=== PATIENT | female | born 1950 ===

== ENCOUNTER 2022-07-15 12:29 | Inpatient (IN) ==
[2022-07-15] MEDS ORDERED: NS 0.9% 1000 ml BAG 1,000 ML IV ONE ×2 (12:51)
[2022-07-15] MEDS ORDERED: cefTRIAXone 2 GM ADDV.VIAL 2 GM in NS 0.9% 100 ml BAG 100 ML IV ONE (12:53)
[2022-07-15 13:18] LABS: PCO2 Arterial 23 mmHg (35-45); PO2 Arterial 83 mmHg (80-100)
[2022-07-15 13:35] LABS: Hematocrit 40 % (35-47); Hemoglobin 12.7 g/dL (12.0-16.0); Mean Corpuscular HGB Conc 32 g/dL (31-36); Mean Corpuscular Hemoglobin 27 pg (27-31); Mean Corpuscular Volume 84 fL (80-97); Mean Platelet Volume 10.1 fL (7.4-10.4); Platelet Count 110 10^3/uL (150-450); Red Blood Count 4.75 10^6 /uL (3.70-4.87); Red Cell Distribution Width 14 % (10-15); White Blood Count 13.3 10^3/uL (3.5-10.8)
[2022-07-15 13:45] LABS: Activated Partial Thrombo Time 34.9 seconds (26.0-38.0); INR 1.3 (0.89-1.11)
[2022-07-15 14:00] LABS: High Sens Troponin Baseline 373 pg/mL (<15)
[2022-07-15 14:16] LABS: Albumin 3.2 g/dL (3.2-5.2); CO2 Carbon Dioxide 16 mmol/L (22-32); Calcium 7.7 mg/dL (8.6-10.3); Chloride 106 mmol/L (101-111); Sodium 140 mmol/L (135-145)
[2022-07-15 14:17] LABS: Urine Appearance Turbid; Urine Bilirubin 3+ (Large) (Negative); Urine Blood 3+ (Large) (Negative); Urine Color Red; Urine Glucose Trace (100mg/dL) (Negative); Urine Ketones 1+ (15mg/dL) (Negative); Urine Protein 3+ (>=300 mg/dL) (Negative); Urine Specific Gravity 1.015 (1.005-1.030); Urine pH 5.5 (5.0-9.0)
[2022-07-15 14:18] LABS: Anion Gap 18 mmol/L (2-11)
[2022-07-15 14:18] LABS: Urine Nitrite Positive (Negative)
[2022-07-15 14:22] LABS: ALT 17 U/L (7-52); Albumin/Globulin Ratio 1.3 (1-3); Alkaline Phosphatase 216 U/L (35-149); Blood Urea Nitrogen 35 mg/dL (6-24); Globulin 2.4 g/dL (2-4); Glucose 127 mg/dL (70-100); Total Protein 5.6 g/dL (6.4-8.9); eGFR CKD-EPI 12.1 (>60)
[2022-07-15 14:24] LABS: ABS Lymphocytes 0.3 10^3/ul (1.0-4.8); ABS Monocytes 0.1 10^3/ul (0-0.8); ABS Neutrophils 12.9 10^3/ul (1.5-7.7); Lymphocyte % 2.1 %
[2022-07-15 14:26] LABS: Urine Bacteria Absent (Absent); Urine Red Blood Cell 3+(>10/hpf) (Absent); Urine White Blood Cell 3+(>20/hpf) (Absent); Urine Yeast Present (Absent)
[2022-07-15] MEDS ORDERED: Enoxaparin 80 MG/0.8 ML SYR SUBCUT ONE (14:51)
[2022-07-15 15:18] LABS: Potassium Redraw 3.8 mmol/L (3.5-5.0)
[2022-07-15] MEDS ORDERED: Adenosine 3 MG/ML 2 ml VIAL (6 mg) ONE (15:18)
[2022-07-15 15:21] LABS: High Sensitivity Troponin 1 Hr 352 pg/mL (<15)
[2022-07-15] MEDS ORDERED: Magnesium Sulfate 2 gm BAG 2 GM/50 ML BAG IVPB ONE ×2 (15:31→17:01)
[2022-07-15] MEDS ORDERED: Adenosine 3 MG/ML 2 ml VIAL (6 mg) IV PUSH ONE ×3 (15:31→18:02)
[2022-07-15] MEDS ORDERED: Magnesium Sulfate 2 gm BAG 2 GM/50 ML BAG ONE (15:31)
[2022-07-15 15:48] LABS: Magnesium 1.5 mg/dL (1.9-2.7)
[2022-07-15] MEDS ORDERED: KCL 20 MEQ/100 ML IVPREMIX 20 MEQ/100 ML BAG IV ONE (17:02)
[2022-07-15] MEDS ORDERED: CALCIUM GLUCONATE 1GM/50ML NS 1 GM/50 ML BAG IV ONE (17:02)
[2022-07-15] MEDS ORDERED: Amiodarone 360 MG IVPREMIX 360 MG/200 ML BAG IV SCH ×2 (17:05→18:25)
[2022-07-15] MEDS ORDERED: Amiodarone 360 MG IVPREMIX 360 MG/200 ML BAG IV ONE (17:06)
[2022-07-15] MEDS ORDERED: Amiodarone 150 mg IVPREMIX 150 MG/100 ML BAG IV ONE ×2 (17:06→18:11)
[2022-07-15] MEDS ORDERED: Succinylcholine 200 mg VIAL 20 mg/ml 10 ml VIAL (200 mg) ONE (17:24)
[2022-07-15] MEDS ORDERED: Rocuronium 50 mg VIAL 10 mg/ml 5 ml VIAL (50 mg) ONE (17:24)
[2022-07-15] MEDS ORDERED: Norepinephrine 16MCG/ML BAG NS 4,000 MCG/250 ML BAG IV ONE (17:25)
[2022-07-15] MEDS ORDERED: Propofol 10 mg/ml 100 ML BTL 100 ML ONE ×2 (17:40→18:01)
[2022-07-15] MEDS ORDERED: Amiodarone IV 150 mg/3 ml VIAL SLOW PUSH ONE (18:01)
[2022-07-15] MEDS ORDERED: Acetaminophen IV 1 GM/100ML 1,000 MG/100 ML BAG IV PRN (18:05)
[2022-07-15] MEDS ORDERED: Piperacillin/Tazobac ADVAN 3.375 GM in NS 0.9% 100 ml BAG 100 ML IV ONE (18:05)
[2022-07-15] MEDS ORDERED: .Amiodarone 24HR ONLY IV Protocol Order Note IV ONE (18:11)
[2022-07-15] MEDS ORDERED: Dextrose 50% Syringe 50 ml 25 GM/50 ML SYRINGE IV PUSH PRN (18:16)
[2022-07-15] MEDS ORDERED: Midazolam 2 mg/2 ml VIAL 1 mg/ml 2 ml VIAL (2 mg) ONE (18:24)
[2022-07-15 18:33] LABS: Creatine Kinase 507 U/L (10-223)
[2022-07-15] MEDS: Midazolam 2 mg/2 ml VIAL 1 mg/ml 2 ml VIAL (2 mg) IV SLOW PU PRN (18:36)
[2022-07-15] MEDS: Norepinephrine 16MCG/ML BAG NS 4,000 MCG/250 ML BAG IV SCH ×2 (18:45→22:45)
[2022-07-15] MEDS ORDERED: Zosyn per Pharmacy NOTE FOLLOW UP SCH (19:00)
[2022-07-15] MEDS ORDERED: Lactated Ringers 1000 ml BAG 1,000 ML IV SCH (19:00)
[2022-07-15] MEDS ORDERED: Dexamethasone IV 4 MG/ML VIAL 1 ml VIAL IV SLOW PU SCH (19:00)
[2022-07-15] MEDS ORDERED: Etomidate 40 mg/20 ml (2 MG/ML) 20 ml VIAL (40 mg) ONE (19:31)
[2022-07-15] MEDS ORDERED: Midazolam 10 mg/10 ml VIAL 1 mg/ml 10 ml VIAL (10 mg) ONE (19:31)
[2022-07-15] MEDS: Propofol 10 mg/ml 100 ML BTL 100 ML IV SCH ×2 (19:35→23:53)
[2022-07-15] MEDS ORDERED: Pantoprazole VIAL 40 MG VIAL IV SCH (20:00)
[2022-07-15 20:39] LABS: Hematocrit 38 % (35-47); Mean Corpuscular HGB Conc 32 g/dL (31-36); Mean Corpuscular Hemoglobin 27 pg (27-31); Mean Corpuscular Volume 85 fL (80-97); Mean Platelet Volume 11.1 fL (7.4-10.4); Platelet Count 104 10^3/uL (150-450); Red Blood Count 4.49 10^6 /uL (3.70-4.87); Red Cell Distribution Width 15 % (10-15); White Blood Count 36.2 10^3/uL (3.5-10.8)
[2022-07-15 20:52] LABS: Urine Appearance Turbid; Urine Bilirubin 3+ (Large) (Negative); Urine Blood 3+ (Large) (Negative); Urine Color Brown; Urine Glucose Negative (Negative); Urine Ketones 1+ (15mg/dL) (Negative); Urine Nitrite Positive (Negative); Urine Protein 3+ (>=300 mg/dL) (Negative); Urine Specific Gravity 1.015 (1.005-1.030); Urine pH 5.5 (5.0-9.0)
[2022-07-15 20:58] LABS: TSH Ultra Thyroid Stim Horm 0.93 mcIU/mL (0.34-5.60)
[2022-07-15 20:58] LABS: Urine Creatinine Concentration 119.19 mg/dL
[2022-07-15] MEDS ORDERED: Propofol 10 mg/ml 100 ML BTL 100 ML IV SCH (21:00)
[2022-07-15 21:01] LABS: Urine Bacteria Absent (Absent); Urine Red Blood Cell 3+(>10/hpf) (Absent); Urine Squamous Epithelial Cell Present (Absent); Urine White Blood Cell 3+(>20/hpf) (Absent)
[2022-07-15 21:18] LABS: Calcium 7.5 mg/dL (8.6-10.3); Potassium 4.3 mmol/L (3.5-5.0); eGFR CKD-EPI 11.1 (>60)
[2022-07-15 21:48] LABS: RBC Morphology Normal (Normal)
[2022-07-15 21:49] LABS: ABS Basophils 0.1 10^3/ul (0-0.2); ABS Lymphocytes 1.3 10^3/ul (1.0-4.8); ABS Monocytes 0.6 10^3/ul (0-0.8); ABS Neutrophils 34.1 10^3/ul (1.5-7.7); Eosinophil % 0.1 %; Lymphocyte % 3.7 %
[2022-07-16] MEDS ORDERED: Amiodarone 360 MG IVPREMIX 360 MG/200 ML BAG IV SCH (00:25)
[2022-07-16] MEDS: Midazolam 2 mg/2 ml VIAL 1 mg/ml 2 ml VIAL (2 mg) IV SLOW PU PRN (00:51)
[2022-07-16] MEDS: Chlorhexidine MOUTHWASH 0.12% 15 ML UDC TOPICAL SCH ×3 (00:56→03:00)
[2022-07-16] MEDS: Norepinephrine 16MCG/ML BAG NS 4,000 MCG/250 ML BAG IV SCH (01:39)
[2022-07-16] MEDS ORDERED: ZOSYN 3.375 GM Q12H per EXTENDED INFUSION IV SCH (02:00)
[2022-07-16 02:30] VITALS: BP 122/80
== END 2022-07-16 02:00 | disposition short-term general hospital (02) | DRG 871 ==
LOC: ED 12:29 → EDHOLD 17:04 → ICU 17:49
PROVIDERS: ADMIT Internal Medicine Critical Care Medicine; ATTEND Internal Medicine Critical Care Medicine